=== PATIENT | female | born 1965 | race Caucasian/White ===

== ENCOUNTER 2023-04-14 16:55 | Emergency (ER) | payer OTHER, BC ==
[2023-04-14 17:13] VITALS: BP 124/84; PULSE 74; RESP 18; TEMP 97.9; BMI 27.4
[2023-04-14] MEDS: ALBUTEROL SO4 2.5/IPRATROPIUM 0.5 INH SOL 3 ML VIAL.NEB. NEB ONE (17:24)
[2023-04-14] MEDS ORDERED: ACETAMINOPHEN 500 MG TABLET (FP) ONE (17:24)
[2023-04-14] MEDS ORDERED: ALBUTEROL SO4 2.5/IPRATROPIUM 0.5 INH SOL 3 ML VIAL.NEB. NEB ONE (17:24)
[2023-04-14] MEDS: ACETAMINOPHEN 500 MG TABLET (FP) PO ONE (17:24)
== END 2023-04-14 18:07 | disposition home or self-care (01) ==
LOC: FER 16:55
PROC: 3E0F7GC Introduction of Other Therapeutic Substance into Respiratory Tract, Via Natural or Artificial Opening (ICD-10-PCS; principal; 2023-04-14)
DX: R05.9 Cough, unspecified (principal); M79.10 Myalgia, unspecified site; R53.83 Other fatigue; R68.83 Chills (without fever); R06.02 Shortness of breath; J18.9 Pneumonia, unspecified organism
CPT/HCPCS: 71046-TC-FY; 99283-25